=== PATIENT | female | born 1950 ===

== ENCOUNTER 2024-01-22 13:36 | Outpatient (AMB) | payer MEDICARE, SELFPAY ==
--- NOTE | 2024-01-22 13:39 | A.OFFVIS_ITS ---
VS Expanded 01/22/24 13:42 01/29/24 14:19 Height 5 ft 2 in 5 ft 2 in Weight 151 lb 0.266 oz 151 lb BMI 27.6 27.6 Intake Visit Reasons: DM-conf Nutrition Presentation Details: Pt presents for MNT for T2DM. The Pt was referred by Lucia Quintanilla NP saw filer specialist Pt presents with daughter during this appt. Pt reports she is on the following DM meds: Trulicity 4 mg/wk ,metformin 1000 mg /d ,glypizide 10 mg/d BG: did not bring meter to this appt Pt reports having lack of meal routine and increased snacks > 2 x/day Pt verbalizes food sources of carbs and foods sources of protein/fiber Enjoys a variety of foods. Has gym membership - not participating BS Monitoring Most Recent Diabetes Results: No Data to Display FTQ-Measydw-Cg.Fritz Equation Height: 5 ft 2 in Weight: 151 lb Resting Metabolic Rate: 1143.41 Calculated Activity Level: Mild Activity Calories Needed to Maintain Weight: 1572.19 Diagnosis Nutrition problem #1: excessive energy intake As related to (etiology) #1: diagnosis As evidenced by (sign/symptom) #1: other (lack of meal planning, inc snack intake > 3 /d) Assessment & Plan Assessment & Plan (1) T2DM (type 2 diabetes mellitus): Code(s): E11.9 - Type 2 diabetes mellitus without complications Category: Medical Plan: Wt: 68Kg ( 01/2024 ) Est kcal needs as per MSJ: 1600 (40% carb, 30% protein/fat) Est fluid needs as per 25-30 ml/d: 2100 Est prot per day as per 1 g/kg bw: 68 Recommend fiber intake : 8-10 g per day and gradually increase to 25-28 g per day for women and 35-38 g for men or as tolerated Recommend sodium intake per day : less than 2000 mg Educated patient on: ( R = reviewed V = verbalizes understanding N/R = needs review N/A = not applicable * Food sources of carbohydrate, adequate serving sizes and its role in various health conditions: R V N/R * Differences between complex carbohydrates a simple carbohydrates, role of fiber in diet: R V N/R * Lean protein sources of foods: R V NR * Differences between types of fats and role in diet (mono on saturated fat fatty acids, saturated fatty acids, trans fats): R V N/R * Food sources of sodium in salt and healthy modifications for heart health in kidney health: R V R/V * Vitamins and minerals: R V N/R * Healthy plate method concept: R * Physical activity: Benefits a precaution: R V N/R * Hypoglycemia protocol (rule of 15): R V N/R * Dietary prevention of Hyperglycemia: R Patient Instructions: work on having 3 scheduled meals per day following healthy plate method, have a fruit in between meals Keep hydrated, have water with meals/snacks Coding Level of Care Code Nutr Indiv Intake (67817) Diagnoses T2DM (type 2 diabetes mellitus) E11.9 Time Spent (min) 30
[2024-01-22 13:42] VITALS: BMI 27.6
[2024-01-29 14:19] VITALS: BMI 27.6
== END 2024-01-22 14:50 | disposition home or self-care (01) ==
PROVIDERS: Visit Provider Dietitian, Registered
DX: E11.9 Type 2 diabetes mellitus without complications (principal)

== ENCOUNTER → 2024-01-22 13:36 | Outpatient (BNVA) | payer MEDICARE, SELFPAY | PROVIDERS: Visit Provider Dietitian, Registered | DX: E11.9 Type 2 diabetes mellitus without complications (principal); Z68.27 Body mass index [BMI] 27.0-27.9, adult; Z79.4 Long term (current) use of insulin; Z71.3 Dietary counseling and surveillance | CPT/HCPCS: 97802 ==

== ENCOUNTER 2024-03-04 13:29 | Outpatient (AMB) | payer MEDICARE, SELFPAY ==
[2024-03-04 13:45] VITALS: BMI 27.9
--- NOTE | 2024-03-04 13:45 | A.OFFVIS_ITS ---
VS Expanded 03/04/24 13:45 Height 5 ft 2 in Weight 152 lb 12.485 oz BMI 27.9 Intake Visit Reasons: T2DM/CONFIRMED Nutrition Presentation Details: Pt presents for MNT f/u for T2DM Reports working on reducing sugars and motivated in trying new recipes -Pt reports walking 2-3 times/wk Per BG reports: 66 % within target, 30% above 180 and 4% above 250 BS Monitoring Most Recent Diabetes Results: No Data to Display Assessment & Plan Assessment & Plan (1) T2DM (type 2 diabetes mellitus): Code(s): E11.9 - Type 2 diabetes mellitus without complications Category: Medical Plan: Wt: 68Kg ( 01/2024 ), 03/16 Est kcal needs as per MSJ: 1600 (40% carb, 30% protein/fat) Est fluid needs as per 25-30 ml/d: 2100 Est prot per day as per 1 g/kg bw: 68 Recommend fiber intake : 8-10 g per day and gradually increase to 25-28 g per day for women and 35-38 g for men or as tolerated Recommend sodium intake per day : less than 2000 mg Educated patient on: ( R = reviewed V = verbalizes understanding N/R = needs review N/A = not applicable * Food sources of carbohydrate, adequate serving sizes and its role in various health conditions: R V N/R * Differences between complex carbohydrates a simple carbohydrates, role of fiber in diet: R V N/R * Lean protein sources of foods: R V NR * Differences between types of fats and role in diet (mono on saturated fat fatty acids, saturated fatty acids, trans fats): R V N/R * Food sources of sodium in salt and healthy modifications for heart health in kidney health: R * Vitamins and minerals: R V N/R * Healthy plate method concept: R * Physical activity: Benefits a precaution: R V N/R * Hypoglycemia protocol (rule of 15): R * Dietary prevention of Hyperglycemia: R Patient Instructions: Continue working on meal planning , following healthy plate method Watch on salt intake, do not add table salt - see list of low sodium options Coding Level of Care Code Nutr Indiv Subseq (00742) Diagnoses T2DM (type 2 diabetes mellitus) E11.9 Time Spent (min) 30
== END 2024-03-04 14:07 | disposition home or self-care (01) ==
PROVIDERS: Visit Provider Dietitian, Registered
DX: E11.9 Type 2 diabetes mellitus without complications (principal)

== ENCOUNTER → 2024-03-04 13:29 | Outpatient (BNVA) | payer MEDICARE, SELFPAY | PROVIDERS: Visit Provider Dietitian, Registered | DX: E11.9 Type 2 diabetes mellitus without complications (principal); Z71.3 Dietary counseling and surveillance | CPT/HCPCS: 97803 ==

== ENCOUNTER → 2024-06-09 14:28 | Outpatient (AMB) | payer MEDICARE, SELFPAY ==
--- NOTE | 2024-06-09 14:45 | A.OFFVIS_ITS ---
VS Expanded 06/09/24 14:47 Height 5 ft 2 in Weight 148 lb 2.41 oz BMI 27.1 Intake Visit Reasons: DM/Left vm Nutrition Presentation Details: Pt presents for MNT f/u for T2DM Pt reports working on increasing physical activity her glucometer has the following information for the past 14 days: 14 d average 164 mg/dl, 12-6 am average 155, 6am -12pm average at 135, 12-6 pm 163 average , 6-12 pm average at 210 BS Monitoring Most Recent Diabetes Results: No Data to Display Assessment & Plan Assessment & Plan (1) T2DM (type 2 diabetes mellitus): Code(s): E11.9 - Type 2 diabetes mellitus without complications Category: Medical Plan: Wt: 68Kg ( 01/2024 ), 03/16 Est kcal needs as per MSJ: 1600 (40% carb, 30% protein/fat) Est fluid needs as per 25-30 ml/d: 2100 Est prot per day as per 1 g/kg bw: 68 Recommend fiber intake : 8-10 g per day and gradually increase to 25-28 g per day for women and 35-38 g for men or as tolerated Recommend sodium intake per day : less than 2000 mg Educated patient on: ( R = reviewed V = verbalizes understanding N/R = needs review N/A = not applicable * Food sources of carbohydrate, adequate serving sizes and its role in various health conditions: R V * Differences between complex carbohydrates a simple carbohydrates, role of fiber in diet: R * Lean protein sources of foods: R * Differences between types of fats and role in diet (mono on saturated fat fatty acids, saturated fatty acids, trans fats): R * Food sources of sodium in salt and healthy modifications for heart health in kidney health: R * Vitamins and minerals: R V N/R * Healthy plate method concept: R * Physical activity: Benefits a precaution: R V * Hypoglycemia protocol (rule of 15): R * Dietary prevention of Hyperglycemia: R Patient Instructions: Continue working on following healthy plate method Choose high fiber food choices at dinner (salads/legumes) Continue working on reducing on sugary snacks, choose nuts, seeds, eggs, yogurt instead Coding Level of Care Code Nutr Indiv Subseq (35335) Diagnoses T2DM (type 2 diabetes mellitus) E11.9 Time Spent (min) 20
[2024-06-09 14:47] VITALS: BMI 27.1
== END ==
PROVIDERS: Visit Provider Dietitian, Registered
DX: E11.9 Type 2 diabetes mellitus without complications (principal)

== ENCOUNTER → 2024-06-09 14:28 | Outpatient (BNVA) | payer MEDICARE, SELFPAY | PROVIDERS: Visit Provider Dietitian, Registered | DX: E11.9 Type 2 diabetes mellitus without complications (principal) | CPT/HCPCS: 97803 ==